=== PATIENT | male | born 1950 | race African-American/Black ===

== ENCOUNTER 2022-03-12 06:57 | Inpatient (IN) | payer MEDICARE, MEDICAID ==
[~2022-03-12] VITALS: Ht 182.9 cm; Wt 79.4 kg
[2022-03-12] MEDS ORDERED: MORPHINE SULFATE 4 MG/ML CPJ (NOT FOR IM USE) IV STA (08:01)
[2022-03-12 08:30] LABS: BASOPHILS % 0.8 % (0.0-2.0); EOSINOPHILS % 2.8 % (0.0-5.0); HEMATOCRIT. 34.2 % (42.0-52.0); HEMOGLOBIN. 11.2 g/dL (14.0-18.0); LYMPHOCYTES % 34.4 % (20.0-50.0); MEAN CORPUSCULAR HEMOGLOBIN 29.8 pg (28.0-32.0); MONOCYTES % 10.4 % (2.0-8.0); NEUTROPHILS % 51.6 % (40.0-76.0); PLATELET 276 x1000/uL (130-400); RED BLOOD CELL COUNT 3.76 mill/uL (4.7-6.1); RED CELL DISTRIBUTION WIDTH 16.7 % (11.6-14.6)
[2022-03-12 08:35] LABS: CHLORIDE 107 mEq/L (98-107)
[2022-03-12] MEDS ORDERED: CETIRIZINE 10MG TABLET PO SCH (09:00)
[2022-03-12] MEDS ORDERED: CLOPIDOGREL 75MG TABLET PO NR (10:15)
[2022-03-12] MEDS ORDERED: DIPHENHYDRAMINE 25MG CAPSULE PO ONE (10:45)
[2022-03-12] MEDS ORDERED: ONDANSETRON HCL 4MG/2ML INJ IV PRN (16:15)
[2022-03-12] MEDS ORDERED: GUAIFENESIN 200MG/10ML SUGAR FREE UDC PO PRN (16:15)
[2022-03-12] MEDS ORDERED: IPRATROPIUM/ALBUTEROL 0.5-3(2.5)MG/3ML NEB NEB PRN (16:15)
[2022-03-12] MEDS ORDERED: NA PHOS,M-B/NA PHOS,DI-BA ENEMA 118ML PR PRN (16:15)
[2022-03-12] MEDS ORDERED: CLONIDINE 0.1MG TABLET PO PRN (16:15)
[2022-03-12] MEDS ORDERED: ACETAMINOPHEN 325MG TABLET PO PRN (16:15)
[2022-03-12] MEDS ORDERED: DEXTROSE 50% WATER 50ML SYRINGE IV PRN (16:15)
[2022-03-12] MEDS ORDERED: HYDROCODONE/ACETAMINOPHEN 5/325MG TABLET PO PRN (16:15)
[2022-03-12] MEDS ORDERED: MAGNESIUM/ALUMINUM HYDROXIDE/SIMETHICONE 30ML UDC PO PRN (16:15)
[2022-03-12] MEDS ORDERED: ACETAMINOPHEN 650MG SUPP PR PRN (16:15)
[2022-03-12] MEDS ORDERED: LORAZEPAM 0.5MG TABLET PO PRN (16:15)
[2022-03-12] MEDS ORDERED: DOCUSATE SODIUM 100MG CAPSULE PO PRN (16:15)
[2022-03-12] MEDS: MORPHINE SULFATE 2 MG/ML CPJ (NOT FOR IM USE) IV PRN (17:10)
[2022-03-12] MEDS: ENOXAPARIN 40MG/0.4ML SYR SUBCUT SCH (17:11)
[2022-03-12] MEDS: DIPHENHYDRAMINE 50MG/ML VIAL IV PRN (17:32)
[2022-03-12] MEDS: INSULIN LISPRO 100 UNITS/ML SUBCUT SCH ×2 (18:20→20:55)
[2022-03-12] MEDS: BLOOD SUGAR DIAGNOSTIC STRIP TEST SCH ×2 (18:25→20:53)
[2022-03-12 18:42] LABS: CLARITY URINE CLEAR (CLEAR); COLOR URINE YELLOW (YELLOW); KETONES URINE NEGATIVE (NEGATIVE); LEUKOCYTE ESTERASE URINE NEGATIVE (NEGATIVE); NITRITE URINE NEGATIVE (NEGATIVE); OCCULT BLOOD URINE NEGATIVE (NEGATIVE); PROTEIN URINE NEGATIVE (NEGATIVE); SPECIFIC GRAVITY URINE 1.013 (1.005-1.030)
[2022-03-12 18:54] LABS: *AMPHETAMINES SCREEN URINE NEGATIVE (NEGATIVE); *BARBITURATES SCREEN URINE NEGATIVE (NEGATIVE); *BENZODIAZEPINES SCREEN URINE NEGATIVE (NEGATIVE); *COCAINE SCREEN URINE PRESUMTIVE POSITIVE (NEGATIVE); CANNABINOID URINE SCREEN NEGATIVE (NEGATIVE); METHADONE URINE SCREEN NEGATIVE (NEGATIVE); OPIATES URINE SCREEN PRESUMTIVE POSITIVE (NEGATIVE); PHENCYCLIDINE URINE SCREEN NEGATIVE (NEGATIVE)
[2022-03-12] MEDS ORDERED: PREDNISONE 10MG TABLET PO ONE (20:00)
[2022-03-12] MEDS ORDERED: PREDNISONE 5MG TABLET PO ONE (20:00)
[2022-03-12] MEDS ORDERED: PREDNISONE 5MG TABLET PO NR (20:00)
[2022-03-12] MEDS: PREDNISONE 5MG TABLET PO SCH (20:55)
[2022-03-12] MEDS ORDERED: FAMOTIDINE 20MG TABLET PO SCH (21:00)
[2022-03-13] MEDS ORDERED: DEXT 5%/0.45% NACL 1000ML 1,000 ML IV SCH
[2022-03-13] MEDS: MORPHINE SULFATE 2 MG/ML CPJ (NOT FOR IM USE) IV PRN (00:41)
[2022-03-13] MEDS: DIPHENHYDRAMINE 50MG/ML VIAL IV PRN (01:18)
[2022-03-13 01:57] VITALS: BP 138/87
[2022-03-13] MEDS ORDERED: PREDNISONE 10MG TABLET PO ONE ×2 (02:00→08:00)
[2022-03-13] MEDS ORDERED: PREDNISONE 5MG TABLET PO ONE ×2 (02:00→08:00)
[2022-03-13 02:02] LABS: CREATINE KINASE MB FRACTION 4.2 ng/mL (0.5-3.6)
[2022-03-13] MEDS ORDERED: DIPHENHYDRAMINE 50MG/ML VIAL IV SCH (02:30)
[2022-03-13] MEDS: PREDNISONE 5MG TABLET PO SCH ×2 (02:39→07:51)
[2022-03-13 04:00] VITALS: BP 138/86
[2022-03-13] MEDS: BLOOD SUGAR DIAGNOSTIC STRIP TEST SCH ×3 (06:06→16:19)
[2022-03-13] MEDS: INSULIN LISPRO 100 UNITS/ML SUBCUT SCH ×3 (06:46→17:08)
[2022-03-13 08:00] VITALS: BP 138/91
[2022-03-13] MEDS ORDERED: DIPHENHYDRAMINE 50MG/ML VIAL IV NR (08:00)
[2022-03-13] MEDS ORDERED: IOHEXOL-350 100 ML BOTTLE ONE (09:47)
[2022-03-13 12:00] VITALS: BP 126/74
[2022-03-13 15:43] VITALS: BP 138/81
[2022-03-13 16:00] VITALS: BP 152/97
[2022-03-13] MEDS: ENOXAPARIN 40MG/0.4ML SYR SUBCUT SCH (16:19)
== END 2022-03-13 16:40 | disposition home or self-care (01) | DRG 206 ==
LOC: ER 06:57 → 8WST 14:03 → SUPCPDRO 16:02 → ENRESERV 03-13 00:08 → MICUSO 03-13 00:42 → 8WST 03-13 00:43
PROVIDERS: ADMIT Internal Medicine; ATTEND Internal Medicine
DX: M94.0 Chondrocostal junction syndrome [Tietze] (principal); J98.11 Atelectasis; I20.9 Angina pectoris, unspecified; E78.5 Hyperlipidemia, unspecified; D64.9 Anemia, unspecified; E11.9 Type 2 diabetes mellitus without complications; I10 Essential (primary) hypertension; K21.9 Gastro-esophageal reflux disease without esophagitis; E78.00 Pure hypercholesterolemia, unspecified; N41.9 Inflammatory disease of prostate, unspecified; F32.A Depression, unspecified; Z20.822 Contact with and (suspected) exposure to COVID-19; Z88.5 Allergy status to narcotic agent; Z88.8 Allergy status to other drugs, medicaments and biological substances
CPT/HCPCS: 36415; 71045; 71275; 80053; 80305; 81003; 82550; 82553; 82962; 83880; 84484; 85025; 87426; 93005; 93306; 93970; 99285; C9803; J1200; J1650; J1815; J2270; J7512; Q0163; Q9967